=== PATIENT | female | born 1955 | race Two or more races ===

== ENCOUNTER → 2020-12-20 | Outpatient (CLI) | payer OTHER | END | disposition home or self-care (01) | LOC: PPH VACUNA 08:00 | PROVIDERS: ATTEND Emergency Medicine Pediatric Emergency Medicine | DX: Z23 Encounter for immunization (principal) ==

== ENCOUNTER 2021-06-24 08:00 | Outpatient (CLI) | payer OTHER | END 2021-06-24 08:30 | disposition home or self-care (01) | LOC: PPH VACUNA 08:00 | PROVIDERS: ATTEND Emergency Medicine Pediatric Emergency Medicine | DX: Z23 Encounter for immunization (principal) ==

== ENCOUNTER 2021-08-10 07:14 | Outpatient (CLI) | payer OTHER | END 2021-08-10 07:28 | disposition home or self-care (01) | LOC: TOM 07:14 | DX: Z12.11 Encounter for screening for malignant neoplasm of colon (principal); K29.50 Unspecified chronic gastritis without bleeding ==

== ENCOUNTER 2021-12-05 11:11 | Outpatient (CLI) | payer OTHER | END 2021-12-05 11:21 | disposition home or self-care (01) | LOC: PPH VACUNA 11:11 | PROVIDERS: ATTEND Emergency Medicine Pediatric Emergency Medicine | DX: Z23 Encounter for immunization (principal) ==

== ENCOUNTER → 2022-06-15 06:45 | Outpatient (CLI) | payer OTHER | END | disposition home or self-care (01) | LOC: LAB 06:45 | PROVIDERS: ATTEND Internal Medicine | DX: E78.2 Mixed hyperlipidemia (principal); E55.9 Vitamin D deficiency, unspecified; D63.8 Anemia in other chronic diseases classified elsewhere; R73.03 Prediabetes; D72.819 Decreased white blood cell count, unspecified; E78.1 Pure hyperglyceridemia ==

== ENCOUNTER 2022-06-19 12:38 | Outpatient (CLI) | payer OTHER | END 2022-06-19 12:40 | disposition home or self-care (01) | LOC: NUCLEAR 12:38 | PROVIDERS: ATTEND Internal Medicine | DX: M81.0 Age-related osteoporosis without current pathological fracture (principal) ==

== ENCOUNTER 2022-08-11 | Outpatient (CLI) | payer OTHER | END 2022-08-11 00:15 | disposition home or self-care (01) | LOC: PPH VACUNA | PROVIDERS: ATTEND Emergency Medicine Pediatric Emergency Medicine | DX: Z23 Encounter for immunization (principal) ==

== ENCOUNTER 2022-10-25 06:33 | Outpatient (CLI) | payer OTHER | END 2022-10-25 06:34 | disposition home or self-care (01) | LOC: LAB 06:33 | PROVIDERS: ATTEND Internal Medicine | DX: E78.2 Mixed hyperlipidemia (principal); E55.9 Vitamin D deficiency, unspecified; D63.8 Anemia in other chronic diseases classified elsewhere; R73.03 Prediabetes; E04.1 Nontoxic single thyroid nodule ==

== ENCOUNTER 2023-11-13 07:16 | Outpatient (CLI) | payer OTHER | END 2023-11-13 07:21 | disposition home or self-care (01) | LOC: SONOGRAMA 07:16 | PROVIDERS: ATTEND Internal Medicine | DX: D75.1 Secondary polycythemia (principal) ==